=== PATIENT | female | born 1950 | race Two or more races ===

== ENCOUNTER → 2024-12-09 | Day surgery (SDC) | payer OTHER ==
[~2024-12-09] MED LIST: CEFAZOLIN SODIUM 1,000 MG VIAL ONE
== END | disposition home or self-care (01) ==
LOC: ADM 12-08 15:00 → CIR.AMB 06:44
PROVIDERS: ATTEND Surgery
DX: C50.411 Malignant neoplasm of upper-outer quadrant of right female breast (principal); Z88.2 Allergy status to sulfonamides